=== PATIENT | male | born 1985 | race Caucasian/White ===

== ENCOUNTER 2024-03-11 15:22 | Emergency (ER) | payer OTHER, SELFPAY ==
[2024-03-11 15:26] VITALS: BP 179/110
[2024-03-11 15:29] VITALS: BMI 42.9
[2024-03-11] MEDS: COZAAR 100 MG PO (15:50)
--- NOTE | 2024-03-11 15:58 | ED.GENMED ---
History of Present Illness
General
Chief Complaint: Blood Pressure Problem
Source: patient
Exam Limitations: none
Time Seen by Provider: 03/11/24 15:33
Nursing documentation reviewed up to this point in time: agreed with
History of Present Illness
History of Present Illness:
38 yo male w hx HTN turned himself in to the [facility]-way as a warrant was out for his arrest, they noted his BP was high so sent him here for evaluation. Pt denies CP, SOB or headache. Unsure whether or not he took his Losartan 100 mg in the past 24
hours.
Past History
Past History
ED Past Medical History: HTN and Other (Hep C)
ED Past Surgical History: Appendectomy
Social History
Tobacco: Smoker
Alcohol: None
Review of Systems
Review of Systems
Allergies reviewed?: Yes
All Other Systems: ROS reviewed and negative except as documented in HPI and ROS
Constitutional: Denies fever or fatigue
Respiratory: Denies trouble breathing
Cardiac: Denies chest pain or palpitations
ABD/GI: Denies abdominal pain, nausea or vomiting
: Reports no symptoms
Musculoskeletal: Reports no symptoms
Skin: Reports no symptoms
Neurological: Reports no symptoms
Phy Exam
Physical Exam
Physical Exam:
GENERAL: No acute distress. A&Ox3.
CONSTITUTIONAL: Afebrile.
EYES: clear, conjunctivae normal
ENMT: moist mucus membranes, Pharynx nl
RESPIRATORY: Regular respirations, nonlabored, lungs clear.
CARDIOVASCULAR: Regular rate and rhythm, no murmurs, no rubs.
GI: Soft, nontender, normal BS
MUSCULOSKELETAL: Moves with ease. Well perfused.
SKIN: Warm, dry, pink
PSYCH: Normal mood and affect. Well kept, interactive and appropriate
NEUROLOGIC: Awake, alert and oriented. Spech clear. No focal neurological deficits
Course
Orders/Labs/Results
Orders:
Orders
03/11/24 15:34
Electrocardiogram (*1) Urgent
Reason for Study: Hypertension, Benign
EKG- Treatment ONCE
Losartan [Cozaar] 100 mg PO NOW STA
03/11/24 15:48
Complete Blood Count/With Diff Urgent
Comprehensive Metabolic Panel Urgent
03/11/24 16:28
COVID-19 Antigen Urgent
Source: Nasal Swab
Abnormal Lab Results
03/11/24
15:48
MPV 10.8 H fL
(7.4-10.4)
Absolute Monos (auto) 0.8 H 10^3/uL
(0.1-0.6)
BUN 23 H mg/dl
(9-20)
Glucose 106 H mg/dl
(70-99)
ALT 83 H U/L
(0-50)
Alkaline Phosphatase 134 H U/L
(38-126)
03/11/24 15:48
03/11/24 15:48
Vital Signs
Initial and Last Documented VS:
Initial Vital Signs
Temp Pulse Resp BP Pulse Ox
97.9 F 84 18 179/110 98
03/11/24 15:26 03/11/24 15:26 03/11/24 15:26 03/11/24 15:26 03/11/24 15:26
Last Documented Vital Signs
Temp Pulse Resp BP Pulse Ox
97.9 F 72 18 157/81 97
03/11/24 15:26 03/11/24 17:15 03/11/24 17:08 03/11/24 17:08 03/11/24 17:15
MDM/Problems Addressed
MDM/Problems Addressed:
38 yo male w hx HTN turned himself in to the half-way as a warrant was out for his arrest, they noted his BP was high so sent him here for evaluation. Pt denies CP, SOB or headache. Unsure whether or not he took his Losartan 100 mg in the past 24
hours.
Initial BP 179/110, NAD
Normal neuro exam
4:30 p.m.
CBC normal
CMP:no clinically significant abnormality
Covid neg
5:30 p.m.
BP improved 157/81
Stable for discharge back to [facility].
Given printed rx for Losartan to take back.
*Critical Care Note
Total Time (30-74mins, 75-104mins- exclusive of procedures): Not Applicable
ED Attending Note
-
Portions of this chart may have been created with voice recognition software.� Occasional wrong word or��sound alike� substitutions may have occurred due to the inherent limitations of voice recognition software.
Discharge Plan
Departure
Patient Disposition: Skilled Nursing
Date of Disposition: 03/11/24
Time of Disposition: 17:05
Condition: Good
Discharge Problem:
BP (high blood pressure)
Instructions: High Blood Pressure (DC)
Prescriptions:
New
losartan 100 mg tablet
100 mg PO DAILY Qty: 30 0RF
Referrals:
NONE,* [Family Provider] -
Activity Restrictions/Additional Instructions:
Pt is medically cleared for incarceration.
Take Losartan 100 mg daily for Blood pressure.
BP 157/81
Covid test is negative
Interventions
Interventions:
*Risk Screen - Suicide Last Done: 03/11/24 15:30
*General Assessment Last Done: 03/11/24 15:30
*Neglect/Abuse Screening Last Done: 03/11/24 15:30
*ED COVID-19 Vaccine History Last Done: 03/11/24 15:30
*Nursing Disposition Last Done: 03/11/24 17:22
ED- Cardiac Assessment Last Done: 03/11/24 15:30
ED- Neurological Assessment Last Done: 03/11/24 15:30
ED- Pulmonary Assessment Last Done: 03/11/24 15:30
Discharge Date and Time
Discharge Date/Time: 03/11/24 17:23
Print Language: COMORAN
[2024-03-11 16:00] VITALS: BP 134/86
[2024-03-11 16:06] LABS: % Basophils 0.5 % (0-2); % Eosinophils 2.8 % (0-6); % Immature Granulocytes 0.3 % (0-0.5); % Lymphocytes 25.4 % (20.5-51.1); % Monocytes 8.1 % (1.7-9.3); % Neutrophils 62.9 % (42.2-75.2); Absolute Basophils 0.1 10^3/uL (0-0.2); Absolute Eosinophils 0.3 10^3/uL (0-0.7); Absolute Lymphocytes 2.6 10^3/uL (1.2-3.4); Absolute Monocytes 0.8 10^3/uL (0.1-0.6); Absolute Neutrophils 6.5 10^3/uL (1.4-6.5); Hematocrit 42.8 % (39.0-52.0); Hemoglobin 14.4 g/dL (13.0-18.0); Mean Corp Hgb Conc. 33.6 g/dL (33.0-37.0); Mean Corpuscular Hgb 27.6 pg (27.0-31.0); Mean Corpuscular Volume 82.1 fL (80.0-94.0); Mean Platelet Volume 10.8 fL (7.4-10.4); Nucleated Red Blood Cells % 0 % (-); Platelet Count 213 10^3/uL (130-400); Red Blood Cell Count 5.21 10^6/uL (4.70-6.10); Red Cell Dist. Width 13.2 % (11.5-14.5); White Blood Cell Count 10.3 10^3/uL (4.8-10.8)
[2024-03-11 16:18] LABS: ALT (SGPT) 83 U/L (0-50); AST (SGOT) 55 U/L (17-59); Albumin 4.1 g/dl (3.5-5.0); Alkaline Phosphatase 134 U/L (38-126); Blood Urea Nitrogen 23 mg/dl (9-20); Calcium 9.6 mg/dl (8.4-10.2); Carbon Dioxide 29 mmol/L (22-30); Chloride 104 mmol/L (98-107); Estimated Creatinine Clearance > 125 ml/min; Glucose 106 mg/dl (70-99); Potassium 4.8 mmol/L (3.5-5.1); Sodium 141 mmol/L (135-145); Total Bilirubin 0.3 mg/dl (0.2-1.3); Total Protein 7.1 g/dl (6.3-8.2); eGFR > 60.00
[2024-03-11 17:06] LABS: COVID-19 Antigen Negative (Negative)
[2024-03-11 17:08] VITALS: BP 157/81
== END 2024-03-11 17:23 ==
LOC: EMR 15:22
PROVIDERS: Registered Nurse; EMERGENCY PHYSICIAN Emergency Medicine
DX: I10 Essential (primary) hypertension (principal); Z11.52 Encounter for screening for COVID-19; Z65.3 Problems related to other legal circumstances; F17.200 Nicotine dependence, unspecified, uncomplicated; Z86.19 Personal history of other infectious and parasitic diseases
CPT/HCPCS: 99283; 80053; 85025; 87811; 93005